=== PATIENT | male | born 1990 | race Caucasian/White ===

== ENCOUNTER 2017-12-20 07:46 | Emergency (ER) | payer BC ==
[2017-12-20] MEDS ORDERED: PROMETHAZINE HCL INJ 25 MG/1 ML VIAL IV ONE (08:38)
[2017-12-20] MEDS ORDERED: ONDANSETRON 4 MG TAB.RAPDIS PO ONE (08:40)
--- NOTE | 2017-12-20 08:40 | ER Document Report ---
ED GI/ - General Mode of Arrival: Ambulatory Information source: Patient TRAVEL OUTSIDE OF THE [place] IN LAST 30 DAYS: No <DALIA FINNEGAN - Last Filed: 12/20/17 08:36> <TERESO LUZ - Last Filed: 12/23/17 15:19> - General Chief Complaint: Vomiting Stated Complaint: VOMITING Time Seen by Provider: 12/20/17 08:18 Notes: Patient is a 27-year-old male who presents to the emergency department today with complaints of 2 days of vomiting. Patient states he has had symptoms like this in the past and it was found to be constipation so he took laxatives and has now been having consistent diarrhea. Patient complains of diffuse abdominal pain as well. Patient states his daughter came home from daycare with similar symptoms 2 days ago. Patient complains of subjective fevers but a temperature was never taken a home. Patient also complains of a slight cough. Patient denies any recent camping, foreign travel, black or red stools/vomit, or testicular pain. (DALIA FINNEGAN) - Related Data Allergies/Adverse Reactions: No Known Allergies Allergy (Verified 12/20/17 07:47) Past Medical History - General Information source: Patient - Social History Smoking Status: Former Smoker Cigarette use (# per day): No Chew tobacco use (# tins/day): No Frequency of alcohol use: Occasional Drug Abuse: Marijuana Lives with: Family Family History: Reviewed & Not Pertinent Patient has suicidal ideation: No Patient has homicidal ideation: No - Medical History Medical History: Negative Renal/ Medical History: Denies: Hx Peritoneal Dialysis GI Medical History: Reports: Hx Hiatal Hernia Past Surgical History: Reports: Hx Orthopedic Surgery - L wrist - Immunizations Hx Diphtheria, Pertussis, Tetanus Vaccination: No <DALIA FINNEGAN - Last Filed: 12/20/17 08:36> Review of Systems - Review of Systems Constitutional: See HPI, Fever - subjective EENT: No symptoms reported Cardiovascular: No symptoms reported Respiratory: See HPI, Cough Gastrointestinal: See HPI, Abdominal pain, Diarrhea, Nausea, Vomiting. denies: Blood in vomit, Black stools, Rectal bleeding Genitourinary: No symptoms reported Male Genitourinary: denies: Testicular pain, Penile discharge Musculoskeletal: No symptoms reported Skin: No symptoms reported Hematologic/Lymphatic: No symptoms reported Neurological/Psychological: No symptoms reported -: Yes All other systems reviewed and negative <DALIA FINNEGAN - Last Filed: 12/20/17 08:36> Physical Exam <DALIA FINNEGAN - Last Filed: 12/20/17 08:36> <TERESO LUZ - Last Filed: 12/23/17 15:19> - Vital signs Vitals: Temp Pulse Resp BP Pulse Ox 97.8 F 97 18 124/81 100 12/20/17 07:49 12/20/17 07:49 12/20/17 07:49 12/20/17 07:49 12/20/17 07:49 - Notes Notes: Physical Exam: General: Alert, appears uncomfortable and nauseated. HEENT: Normocephalic. Atraumatic. PERRL. Extraocular movements intact. Oropharynx clear. Dry mucous membranes. Neck: Supple. Non-tender. Respiratory: No respiratory distress. Clear and equal breath sounds bilaterally. Cardiovascular: Regular rate and rhythm. Abdominal: Epigastric tenderness with palpation. No distension. Normal Bowel Sounds. Back: Non-tender. No deformity or step off. Extremities: Moves all four extremities. Upper extremities: Normal inspection. Normal ROM. Lower extremities: Normal inspection. No edema. Normal ROM. Neurological: Normal cognition. AAOx4. Normal speech. Psychological: Normal affect. Normal Mood. Skin: Warm. Dry. Normal color. (DALIA FINNEGAN) Course <DALIA FINNEGAN - Last Filed: 12/20/17 08:36> - Laboratory Result Diagrams: 12/20/17 08:52 12/20/17 08:52 <TERESO LUZ - Last Filed: 12/23/17 15:19> - Re-evaluation Re-evalutation: 12/20/17 09:42 His labs within normal limits nonsignificant patient well-appearing resting comfortably no vomitus or diarrhea in the emergency department. States he is feeling much better after fluids. Will provide outpatient Zofran work excuse follow-up if any worsening symptoms including any fevers or localization of abdominal pain which she is not having at this time. (TERESO LUZ) - Vital Signs Vital signs: Temp Pulse Resp BP Pulse Ox 98.9 F 72 18 117/61 100 12/20/17 09:52 12/20/17 09:52 12/20/17 09:52 12/20/17 09:52 12/20/17 09:52 - Laboratory Laboratory results interpreted by me: 12/20/17 12/20/17 08:52 08:52 Plt Count 135 L Lymphocytes % 11.6 L Calcium 10.6 H Total Bilirubin 1.5 H Discharge <DALIA FINNEGAN - Last Filed: 12/20/17 08:36> <TERESO LUZ - Last Filed: 12/23/17 15:19> - Discharge Clinical Impression: Nausea & vomiting Qualifiers: Vomiting type: unspecified Vomiting Intractability: non-intractable Qualified Code(s): R11.2 - Nausea with vomiting, unspecified Diarrhea Qualifiers: Diarrhea type: unspecified type Qualified Code(s): R19.7 - Diarrhea, unspecified Disposition: HOME, SELF-CARE Instructions: Antinausea Medication ([facility]), Diarrhea, Nonspecific ([facility]), Vomiting ([facility]) Additional Instructions: Please return to the emergency department for discussion if you have worsening symptoms develop fever or any localization of abdominal pain away in your lower quadrants. Prescriptions: Ondansetron [Zofran Odt 4 mg Tablet] 1 tab PO ASDIR PRN #15 tab.rapdis PRN Reason: For Nausea/Vomiting Forms: Return to Work Scribe Attestation: 12/23/17 15:18 I personally performed the services described documentation, reviewed and edited the documentation which was dictated to describe my presence, and it accurately records my words and actions. (TERESO LUZ) Scribe Documentation - Scribe Written by Scribe:: Yaneth Rodriguez, 12/20/2017 0840 acting as scribe for :: Albin <ADLIA FINNEGAN - Last Filed: 12/20/17 08:36>
[2017-12-20] MEDS: RINGERS SOLUTION,LACTATED 1,000 ML IV PRN ×2 (08:44→09:43)
[2017-12-20 09:09] LABS: ABSOLUTE LYMPHOCYTES (AUTO) 0.8 10^3/uL (0.5-4.7); ABSOLUTE MONOCYTES (AUTO) 0.7 10^3/uL (0.1-1.4); ABSOLUTE NEUT (AUTO) 5.2 10^3/uL (1.7-8.2); BASOPHILS % (AUTO) 0.3 % (0-2); EOSINOPHILS % (AUTO) 0.5 % (0-6); HEMATOCRIT 46.9 % (37.9-51.0); HEMOGLOBIN 16.5 g/dL (13.5-17.0); LYMPHOCYTES % (AUTO) 11.6 % (13-45); MEAN CORPUSCULAR HGB CONC 35.3 g/dL (32.0-36.0); MEAN CORPUSCULAR VOLUME 88 fl (80-97); MONOCYTES % (AUTO) 10.4 % (3-13); PLATELET COUNT 135 10^3/uL (150-450); RED BLOOD COUNT 5.33 10^6/uL (4.35-5.55); RED CELL DISTRIBUTION WIDTH 12.9 % (11.5-14.0); SEGMENTED NEUTROPHILS % (AUTO) 77.2 % (42-78); TOTAL CELLS COUNTED % (AUTO) 100 %; WHITE BLOOD COUNT 6.7 10^3/uL (4.0-10.5)
[2017-12-20 09:30] LABS: ALANINE AMINOTRANSFERASE 23 U/L (21-72); ALBUMIN 4.8 g/dL (3.5-5.0); ALKALINE PHOSPHATASE 52 U/L (38-126); ANION GAP 15 (5-19); ASPARTATE AMINO TRANSFERASE 21 U/L (17-59); BILIRUBIN,DIRECT 0.3 mg/dL (0.0-0.4); BILIRUBIN,TOTAL 1.5 mg/dL (0.2-1.3); BLOOD UREA NITROGEN 12 mg/dL (7-20); CALCIUM 10.6 mg/dL (8.4-10.2); CARBON DIOXIDE 24 mmol/L (22-30); CHLORIDE 102 mmol/L (98-107); GLUCOSE 103 mg/dL (75-110); POTASSIUM 4.1 mmol/L (3.6-5.0); SODIUM 141.2 mmol/L (137-145)
[2017-12-20 10:48] VITALS: BP 117/61
== END 2017-12-20 10:01 | disposition home or self-care (01) ==
LOC: ER 07:46
DX: R11.2 Nausea with vomiting, unspecified (principal); R19.7 Diarrhea, unspecified; R10.84 Generalized abdominal pain; R10.816 Epigastric abdominal tenderness; R05 Cough; F12.10 Cannabis abuse, uncomplicated; Z87.891 Personal history of nicotine dependence
CPT/HCPCS: 99284; 96360; 36415; 83735; 85025; 80053; S0119; J7120